=== PATIENT | male | born 2000 | race Caucasian/White ===

== ENCOUNTER 2022-07-28 12:39 | Emergency (ER) | payer OTHER, SELFPAY ==
[2022-07-28] MEDS ORDERED: Ketorolac Tromethamine 60 MG/2 ML VIAL ONE (14:15)
[2022-07-28] MEDS ORDERED: traMADol HCl 50 MG TAB ONE (14:15)
== END 2022-07-28 14:45 | disposition home or self-care (01) ==
LOC: NAV ERS 12:39
DX: S00.83XA Contusion of other part of head, initial encounter (principal); S93.402A Sprain of unspecified ligament of left ankle, initial encounter; S80.12XA Contusion of left lower leg, initial encounter; F17.200 Nicotine dependence, unspecified, uncomplicated; Y04.0XXA Assault by unarmed brawl or fight, initial encounter
CPT/HCPCS: 70450; 70486; 96372; J1885